=== PATIENT | female | born 1970 | race Caucasian/White ===

== ENCOUNTER 2016-12-22 08:41 | Emergency (ER) | payer SELFPAY ==
[2016-12-22 08:58] VITALS: BP 110/61
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
== END 2016-12-22 09:35 | disposition home or self-care (01) ==
LOC: UCEAST 08:41
DX: S06.0X9A Concussion with loss of consciousness of unspecified duration, initial encounter (principal); W22.8XXA Striking against or struck by other objects, initial encounter; Y99.0 Civilian activity done for income or pay
CPT/HCPCS: 99211; G0463

== ENCOUNTER 2018-06-07 15:11 | Inpatient (IN) | payer BC ==
[2018-06-07] MEDS ORDERED: Ketorolac INJ* 30 MG/ML 1 ML VIAL IV PUSH ONE (16:17)
[2018-06-07] MEDS ORDERED: Ondansetron INJ* 2 MG/ML VIAL IV ONE (16:17)
[2018-06-07] MEDS ORDERED: NS 0.9% 1000 ML** 1,000 ML IV ONE ×2 (16:17→17:12)
--- NOTE | 2018-06-07 16:17 | ED ---
Back Pain - HPI Summary HPI Summary: Patient is a 47-year-old female who presents emergency department for right CVA tenderness that started last night. Patient denies any falls or recent injuries. She states pain came on acutely and has been intermittent and sharp in nature. Patient states she was driving home from work today when pain was so severe she had a focus puller and lie down for about 30 minutes. Patient denies fever, chills, vomiting, diarrhea, urinary symptoms, chest pain or shortness of breath. Denies past medical history other than cholelithiasis and seasonal allergies. Symptoms are moderate in severity. No current modifying factors. Pain does not radiate into legs. - History of Current Complaint Chief Complaint: EDBackInjuryPain Stated Complaint: LOWER BACK PAIN/NAUSEA PER PT Time Seen by Provider: 06/07/18 16:01 Hx Obtained From: Patient Hx Last Menstrual Period: week ago Pain Intensity: 7 - Allergies/Home Medications Allergies/Adverse Reactions: Allergies Allergy/AdvReac Type Severity Reaction Status Date / Time Fish Containing Products Allergy Unknown Verified 06/07/18 15:35 Reaction Details Penicillins Allergy Difficulty Verified 06/07/18 15:35 Breathing PMH/Surg Hx/FS Hx/Imm Hx Previously Healthy: Yes Endocrine/Hematology History: Reports: Hx Blood Transfusions, Hx Anemia Denies: Hx Diabetes Cardiovascular History: Denies: Hx Hypercholesterolemia, Hx Hypertension, Hx Pacemaker/ICD Respiratory History: Reports: Hx Pneumonia, Hx Seasonal Allergies GI History: Reports: Hx Obstructive Bowel - r/t gastric bypass History: Reports: Hx Kidney Stones Sensory History: Reports: Hx Contacts or Glasses - glasses Denies: Hx Cataracts, Hx Hearing Aid Opthamlomology History: Reports: Hx Contacts or Glasses - glasses Denies: Hx Cataracts Psychiatric History: Denies: Hx Panic Disorder - Surgical History Surgery Procedure, Year, and Place: tumor removed from abdomen 2009, gastric bypass, blocked intestine surgery Hx Anesthesia Reactions: No Infectious Disease History: No Infectious Disease History: Denies: Hx of Known/Suspected MRSA, Traveled Outside the [place] in Last 30 Days - Family History Known Family History: Positive: Diabetes Negative: Cardiac Disease, Hypertension - Social History Occupation: Employed Full-time Lives: With Family Alcohol Use: None Substance Use Type: Reports: None Smoking Status (MU): Never Smoked Tobacco Review of Systems Constitutional: Negative Negative: Fever, Chills Cardiovascular: Negative Negative: Chest Pain Respiratory: Negative Negative: Shortness Of Breath Positive: Nausea. Negative: Abdominal Pain, Vomiting, Diarrhea Positive: flank pain. Negative: frequency, hematuria Musculoskeletal: Negative Skin: Negative Neurological: Negative All Other Systems Reviewed And Are Negative: Yes Physical Exam Triage Information Reviewed: Yes Vital Signs On Initial Exam: Initial Vitals Temp Pulse Resp BP Pulse Ox 98 F 92 18 123/64 100 06/07/18 15:20 06/07/18 15:20 06/07/18 15:20 06/07/18 15:20 06/07/18 15:20 Vital Signs Reviewed: Yes Appearance: Positive: Obese - Pt. sitting up in bed in NAD. Appears uncomfortable but nontoxic. Pale. Skin: Positive: Warm, Dry, Pale Head/Face: Positive: Normal Head/Face Inspection Eyes: Positive: Normal, EOMI, ERLINDA, Conjunctiva Clear Neck: Positive: Supple Respiratory/Lung Sounds: Positive: Clear to Auscultation, Breath Sounds Present Cardiovascular: Positive: Normal, RRR Abdomen Description: Positive: Nontender, Soft, Other: - Right CVA tenderness Neurological: Positive: Normal, CN Intact II-III Psychiatric: Positive: Affect/Mood Appropriate Diagnostics - Vital Signs Vital Signs Temp Pulse Resp BP Pulse Ox 06/07/18 15:20 98 F 92 18 123/64 100 - Laboratory Result Diagrams: 06/07/18 16:45 06/07/18 16:45 Lab Statement: Any lab studies that have been ordered have been reviewed, and results considered in the medical decision making process. Back Pain Course/Dx - Course Course Of Treatment: Patient presenting to the ER for right colic the flank pain that started yesterday. She is afebrile stable vital signs. Suspicious for possible urolithiasis, hydronephrosis, pyelonephritis. We'll obtain labs and CAT scan. IV Toradol and fluids ordered. Reading per radiology: IMPRESSION : NO HYDRONEPHROSIS OR NEPHROLITHIASIS. LARGE VENTRAL HERNIA CONTAINING TRANSVERSE COLON. SPLENOMEGALY. CHOLELITHIASIS. CBC showed a hemoglobin of 5 and hematocrit of 17. CBC from 2016 showed hemoglobin of 7. Type and screen and 2 unit pRBC ordered. Discussed with pt. she states that she has had a blood transfusion in the past when she was having issues with her gallbladder. She believes she has seen hematology in the past. States she use to take iron supplements but stops. Pt. notes lightheadedness and dizziness over that last few days. She deon hx of gastric ulcer, blood in stool. Stool sample was sent for occult blood. I spoke with hospitalist, Dr. Helms, and pt. has been accepted to his service. - Diagnoses Differential Diagnosis/HQI/PQRI: Positive: Renal Colic, Strain, Sprain Provider Diagnoses: Anemia, Flank pain - Critical Care Time Critical Care Time: 30-74 min - 30 minutes including direct pt. care and consultation. Excludes billable procedures. Discharge - Sign-Out/Discharge Documenting (check all that apply): Patient Departure Patient Received Moderate/Deep Sedation with Procedure: No - Discharge Plan Condition: Stable Disposition: ADMITTED TO [facility] Referrals: Martha Walsh MD [Primary Care Provider] - - Billing Disposition and Condition Condition: STABLE Disposition: Admitted to [facility]
[2018-06-07 17:06] LABS: ABS Basophils 0.1 10^3/ul (0-0.2); ABS Eosinophils 0.1 10^3/ul (0-0.6); ABS Lymphocytes 1.3 10^3/ul (1.0-4.8); ABS Monocytes 0.6 10^3/ul (0-0.8); ABS Neutrophils 5.8 10^3/ul (1.5-7.7); ABS Nucleated RBC 0 10^3/ul; Eosinophil % 1.4 %; Hematocrit 17 % (33-41); Mean Corpuscular HGB Conc 29 g/dL (31-36); Mean Corpuscular Hemoglobin 17 pg (27-31); Mean Corpuscular Volume 60 fL (80-97); Mean Platelet Volume 8.3 fL (7.4-10.4); Nucleated Red Blood Cells % 0.5; Platelet Count 230 10^3/uL (150-450); Red Blood Count 2.87 10^6 /uL (3.70-4.87); Red Cell Distribution Width 20 % (10.5-15); White Blood Count 7.8 10^3/uL (3.5-10.8)
[2018-06-07 17:11] LABS: Urine Appearance Cloudy; Urine Bacteria Absent (Absent); Urine Bilirubin Negative (Negative); Urine Blood Negative (Negative); Urine Color Yellow; Urine Glucose Negative (Negative); Urine Ketones Negative (Negative); Urine Nitrite Negative (Negative); Urine Protein Negative (Negative); Urine Red Blood Cell 1+(3-5/hpf) (Absent); Urine Specific Gravity 1.019 (1.010-1.030); Urine Squamous Epithelial Cell Present (Absent); Urine Urobilinogen Positive (Negative); Urine White Blood Cell 2+(11-20/hpf) (Absent)
[2018-06-07 17:17] LABS: Albumin/Globulin Ratio 1.5 (1-3); BUN/Creatinine Ratio 17.2 (8-20); Calcium 8.6 mg/dL (8.6-10.3); EGFR African American 133.7 (>60); EGFR Non-African American 110.5 (>60); Globulin 2.7 g/dL (2-4); Potassium 3.8 mmol/L (3.5-5.0); Total Bilirubin 0.6 mg/dL (0.2-1.0); Total Protein 6.7 g/dL (6.4-8.9)
[2018-06-07] MEDS ORDERED: Al Hydrox/Mg Hydrox/Simet LIQ* 30 ML UDC PO PRN (17:34)
[2018-06-07 17:43] LABS: Microcytosis 3+; Polychromasia 1+
[2018-06-07 17:44] LABS: Tear Drop Cells 1+
[2018-06-07 18:18] LABS: Indirect Bilirubin 0.5 mg/dL (0.3-1.0)
[2018-06-07 18:21] LABS: Hematocrit for Retic CNT 19 % (33-41); Immature Retic Fraction 0.52; RBC Retic Count 3.07 10^6/uL (3.70-4.87)
[2018-06-07 18:37] LABS: Activated Partial Thrombo Time 16.6 seconds (26.0-36.3); INR 1.14 (0.77-1.02)
--- NOTE | 2018-06-07 20:03 | HP ---
CC: Dr. Walsh * HISTORY AND PHYSICAL: DATE OF ADMISSION: 06/07/18 TIME OF ADMISSION: 6 p.m. CHIEF COMPLAINT: Back pain. HISTORY OF PRESENT ILLNESS: This is a 47-year-old female with history of anemia , who presented to the emergency department with back pain for the past 3 days. She localizes it to just right of the spine at approximately L1. She said approximately 3 days ago it started and was fairly mild. It was intermittent over the past 3 days, but today it was much worse. She drove to [employer] for work and driving made it the worst. 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 In the ED, her hemoglobin was incidentally found to be 5. The most recent hemoglobin we have on record is from 2015 when it was 7. She is not sure what it has been in between then and now. She does not take an iron because she states she did not absorb it well and she says she did see a transfer specialist several years ago in [place], but he made no recommendations and she does not know what the conclusion for the etiology of her anemia. She does note on further questioning some increased fatigue lately. She usually walks 2 miles during her lunch, but over the past 2 weeks, she has only been able to walk 1 mile because after 1 mile she is too tired. She does get periods, but they are irregular, which they have always been for her. Her most recent period ended 2 weeks ago and it lasted approximately 2-1/2 weeks. Her normal periods last only about 3 days. She did not feel that it was terribly heavy. She used approximately 5 regular tampons per day. She denies hematochezia or melena. She notes that her stools are quite light and they have not changed recently. She follows no special diet. She says she does not eat much meat, but does not particularly eliminate it. PAST MEDICAL HISTORY: Obesity and anemia. PAST SURGICAL HISTORY: She has history of an ovarian tumor removal and gastric bypass. HOME MEDICATIONS: She takes no medications nor [id number] pills. FAMILY HISTORY: Her mom has fibromyalgia and her sister has diabetes and is on dialysis. SOCIAL HISTORY: She works at the [employer] in [employer]. She does not smoke or use any alcohol. Her emergency contact is her sister, Rhina. REVIEW OF SYSTEMS: As per the HPI. Remainder of the 14-point review of systems is negative. PHYSICAL EXAMINATION GENERAL: Alert, well-appearing young female, in no acute distress. She is resting comfortably on the stretcher. VITAL SIGNS: Temperature 98 degrees, heart rate 92, respiratory rate 20, pulse ox 100% on room air, blood pressure 99/56. HEENT: Pupils are 3 mm bilaterally and reactive to light. Her conjunctivae are pale. She is anicteric. Her oral mucosa is moist. Her pharynx has no erythema or exudates. NECK: She has no JVP or adenopathy. LUNGS: Clear bilaterally. CHEST: She is in a regular rate and rhythm with no murmurs. ABDOMEN: Obese, soft, nontender, nondistended, and a healed incision is present. Her spleen is not palpable. Her liver is palpable just at the costal margin. She points to the area on her back that is tender. It is just right to L1 and is not tender with palpation and she has no CVA tenderness. EXTREMITIES: Trace edema bilaterally. No rashes or ulcers. NEUROLOGIC: She is oriented x3, pleasant, appropriate, and follows all commands. DIAGNOSTIC STUDIES/LAB DATA: White blood cells 7.8, hemoglobin 5.0, platelet count 230, MCV 60. Sodium 137, potassium 3.8, chloride 110, bicarb 23, BUN 10, creatinine 0.58, glucose 99. Urinalysis is positive for urobilinogen, leuk esterase, white blood cells, and 1+ rbc's. Imaging: A CT abdomen and pelvis shows no hydronephrosis or nephrolithiasis. A large ventral hernia containing transverse colon, splenomegaly, and cholelithiasis. Of note, the uterus and adnexa are grossly normal. There is no lymphadenopathy and there is a stable mild compression deformity at the thoracolumbar junction. ASSESSMENT AND PLAN: This is a 47-year-old female with history of obesity and unspecified anemia, who presents to the emergency department with back pain and then incidentally found to have a hemoglobin of 5. 1. Anemia. Clearly this is a chronic and subacute issue given her minimal symptoms and hemodynamic stability. The etiology, however, is unclear as she does not have notably heavy menstrual periods. I have added on studies from the emergency department labs including iron, percent sat, ferritin, transferrin , B12, reticulocytes, LDH, and liver function tests. A fecal occult blood test is pending. She has no evidence of an active bleed at this time. Given the incidental finding of splenomegaly on her CT, I am concerned for a hematologic or marrow dysfunction and I will discuss the case with Hematology. I am interested in their input. She has been ordered for 2 units of packed red blood cells in the emergency department and I agree with this plan. We will recheck her CBC after the blood has infused to check her response. 2. Back pain. She does have a mild compression deformity, so it is possible this is what is causing her pain. She has no ecchymosis and certainly no findings on her CT to explain such severe symptoms that would bring her to the emergency department. She has a mildly positive UA, but there was no stranding on the CT to suggest pyelonephritis and no other infectious symptoms, so I do not believe that pyelo is causing her symptoms either. We will continue to monitor her pain and see if it improves with blood transfusions. 3. DVT prophylaxis: Contraindicated in the setting of a possible bleed. 4. Disposition: Admit to observation to [address] [place] [address]. 5. Diet is unrestricted and activity is ad quynh. [id number]/[facility] #: [id number] [facility] HOSPITALHolli
[2018-06-07] MEDS: Lactated Ringers 1000 ML Bag* 1,000 ML IV SCH (20:39)
[2018-06-07 21:21] LABS: LDH 142 U/L (140-271); Total Iron Binding Capacity 528 mcg/dL (250-450); Transferrin 377 mg/dL (203-362)
[2018-06-07 21:33] LABS: % Iron Saturation 3 % (15-55); Iron < 17 ug/dL (50-212)
[2018-06-07 21:42] LABS: Ferritin 1.6 ng/mL (11-307)
[2018-06-08] MEDS: Acetaminophen TAB* 325 MG PO PRN ×2 (00:23→08:48)
[2018-06-08] MEDS: Lactated Ringers 1000 ML Bag* 1,000 ML IV SCH ×2 (05:20→16:53)
[2018-06-08 08:52] LABS: Hematocrit 20 % (33-41); Hemoglobin 5.9 g/dL (12.0-16.0); Mean Corpuscular HGB Conc 29 g/dL (31-36); Mean Corpuscular Hemoglobin 19 pg (27-31); Mean Corpuscular Volume 65 fL (80-97); Platelet Count 194 10^3/uL (150-450); Red Blood Count 3.09 10^6 /uL (3.70-4.87); Red Cell Distribution Width 24 % (10.5-15); White Blood Count 6.9 10^3/uL (3.5-10.8)
[2018-06-08 08:53] LABS: INR 1.18 (0.77-1.02)
[2018-06-08 09:02] LABS: BUN/Creatinine Ratio 18.6 (8-20); Calcium 8.1 mg/dL (8.6-10.3); EGFR African American 131.1 (>60); EGFR Non-African American 108.3 (>60); Potassium 3.9 mmol/L (3.5-5.0)
[2018-06-08 09:18] LABS: ABS Basophils 0.1 10^3/ul (0-0.2); ABS Eosinophils 0.2 10^3/ul (0-0.6); ABS Monocytes 0.5 10^3/ul (0-0.8); ABS Neutrophils 5.1 10^3/ul (1.5-7.7); ABS Nucleated RBC 0 10^3/ul; Eosinophil % 2.9 %; Lymphocyte % 14.3 %; Nucleated Red Blood Cells % 0.2
[2018-06-08 09:20] LABS: Microcytosis 1+; Polychromasia 1+; Tear Drop Cells 1+
[2018-06-08] MEDS: Iron Sucrose* 200 MG in NS 0.9% 100 ML* 100 ML IVPB SCH (13:12)
--- NOTE | 2018-06-08 14:37 | CONS ---
Amended report to enter date of consult. CONSULTATION REPORT: DATE OF CONSULT: 06/08/18. REFERRING PHYSICIAN: Hospitalist group. PRIMARY CARE PHYSICIAN: Dr. Walsh. HISTORY OF PRESENT ILLNESS: This is a 47-year-old female with history of gastric bypass surgery in 2000. She has longstanding anemia since that time. She had been treated in [place] by a application support technician, but does not remember having any IV iron infusions. That doctor moved and she was subsequently lost to follow up. She sees Dr. Walsh at [facility] for primary care. 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 She has a history of anemia through our chart record, which shows a hemoglobin of 7.5 on 11/06/10, 8.9 on 11/07/10 and 8.2 on 11/08/10, 7.2 in January 2015, 7.September. Most recently, she developed acute back pain. Pain started on 06/04/18 and continued up through . Sharp pain, intermittent, that was so bad when driving, she had to pull off the road. She thought she had a kidney infection and she came to the [facility] Emergency Room. She had also noticed increasing fatigue over the past month. She has had more shortness of breath, she has not been unable to walk 2 miles, she can only walk less than 1 mile. She has been going to work regularly. On presentation, she had a CBC that showed a hemoglobin of 5.0, MCV of 60, white count 6.9, and platelets of 194,000. Chemistries show normal renal function, iron saturation of 3% with ferritin of 1.6. Normal LFTs and normal bilirubin, normal LDH and B12 of 283. A CT scan of the abdomen and pelvis was done that shows splenomegaly with spleen over 16 cm. No evidence of kidney stone, normal kidneys and a normal appearing liver. She did have a left ventral hernia containing the transverse colon. She was admitted and given packed red blood cells. PAST MEDICAL HISTORY: 1. Obesity. 2. Chronic anemia. PAST SURGICAL HISTORY: 1. Gastric bypass surgery, 2000. 2. Tonsils in childhood. GYNECOLOGIC HISTORY: Periods are irregular, but only last 2 to 3 days when they appear. She has moderate amount of bleeding. P0, G0. No history of fibroids. ALLERGIES: FISH and PENICILLIN. FAMILY HISTORY: Anemia in her mother side including her maternal grandmother. Her sister has diabetes and has gone into renal failure. Parkinson's runs in the family. SOCIAL HISTORY: She is currently working at the [employer]. She does not smoke and does not drink. REVIEW OF SYSTEMS: Fatigue as noted above. No fever, chills or night sweats. Weight has been stable. HEENT: Negative. Lungs: Shortness of breath with exertion. Cardiac: No palpitations or chest pain even with exertion. GI: She has the flank pain in the last 3 days, was otherwise negative. Normal bowel movements. She has not noticed dark stools or blood in her stool. : No hematuria, dysuria. Musculoskeletal: Denies back pain or joint pain. Neurologic: Negative. Skin: No rashes or lesions. PHYSICAL EXAMINATION: BP 116/63, pulse 87, respirations 16, sat 99%, temperature 98.7. HEENT: Conjunctivae pale, mucosa moist. No cervical or supraclavicular lymphadenopathy. Lungs are clear to auscultation. Heart is regular rate and rhythm. S1 and S2. No murmurs or gallops. Abdomen: Obese, nontender, nondistended, cannot palpate spleen or liver. Extremities: Edema versus obesity. She has good pulses x4. Neurologic: Grossly nonfocal. LABORATORY DATA: Additional blood work include an INR of 1.18 and she had a urine that showed +2 leukocyte esterase, +1 white blood cells, yellow and cloudy , negative for protein or blood. No bacteria. ASSESSMENT AND PLAN: A 47-year-old female with acute on chronic iron deficiency anemia after gastric bypass. Differential diagnosis includes anemia secondary to gastric bypass, additional absorption defect such as celiac disease , occult blood loss and obesity as a risk factor for colon cancer. 1. Agree with 2 units of packed red blood cells. We will also give her IV iron daily for the duration of her stay in the hospital. Plan Venofer 200 mg IV. 2. Borderline B12, we will check methylmalonic acid. She may have absorption defect. 3. We will also check a celiac panel and von Willebrand panel. She does have some history of menorrhagia. 4. Close follow up and IV iron after discharge. 5. She will need endoscopy and colonoscopy to rule out occult bleeding. This can also be done as an outpatient after discharge. We will continue to follow during the hospitalization and then in clinic after discharge. [id number]/[facility] #: [id number] HUA
--- NOTE | 2018-06-08 14:42 | PN ---
Subjective Date of Service: 06/08/18 Interval History: Ms. Bro is feeling better today. She denies any dizziness, lightheadedness, or SOB. She has been up ambulating without difficulty. She had a headache this morning which was relieved by Tylenol. She reports that she had a heavy menstrual cycle within the last month, but did not have any menses the month prior. This is somewhat typical for her so she was not concerned. She does not follow with a RECYCLABLE MATERIALS SORTER regularly. Family History: Unchanged from Admission Social History: Unchanged from Admission Past Medical History: Unchanged from Admission Objective Active Medications: Acetaminophen (Tylenol Tab*) 650 mg PO Q4H PRN FEVER/PAIN Al Hydrox/Mg Hydrox/Simethicone (Maalox Plus*) 30 ml PO Q6H PRN INDIGESTION Lactated Ringer's (Lactated Ringers 1000 Ml Bag*) 1,000 mls @ 125 mls/hr IV PER RATE JON Iron Sucrose 200 mg/ Sodium (Chloride) 110 mls @ 110 mls/hr IVPB DAILY [facility] Vital Signs - 8 hr 06/08/18 07:35 Temperature 98.7 F Pulse Rate 87 Respiratory 16 Rate Blood Pressure 116/63 (mmHg) O2 Sat by Pulse 99 Oximetry Oxygen Devices in Use Now: None Appearance: Middle-aged female sitting in bed in NAD Eyes: No Scleral Icterus Ears/Nose/Mouth/Throat: Mucous Membranes Moist Neck: NL Appearance and Movements; NL JVP, Trachea Midline Respiratory: Symmetrical Chest Expansion and Respiratory Effort, Clear to Auscultation Cardiovascular: NL Sounds; No Murmurs; No JVD, RRR Abdominal: NL Sounds; No Tenderness; No Distention Extremities: No Edema Skin: No Rash or Ulcers Neurological: Alert and Oriented x 3 Lines/Tubes/Other Access: Clean, Dry and Intact Peripheral IV Nutrition: Taking PO's Result Diagrams: 06/08/18 08:32 06/08/18 08:32 Assess/Plan/Problems-Billing Assessment: Ms. Bro is a 47 yo F with PMH of obesity and anemia who presented to the ED with back pain and was found to be markedly anemic with an H&H of 5 & 17, asymptomatic. - Patient Problems (1) Anemia Code(s): D64.9 - ANEMIA, UNSPECIFIED Comment: - Likely multifactorial d/t iron deficiency, malabsoprtion, and acute blood loss - H&H 5/17 on admission, now 5.11/29 after 2 units PRBC yesterday - Stool occult negative - Appreciate Hematology consult; will check methylmalonic acid, celiac panel, von Willebrand panel (all pending) - Will need EGD and colonoscopy as an outpatient; will also need f/u with a RECYCLABLE MATERIALS SORTER - Transfuse 2 units PRBC today; will recheck H&H again today and in the AM - Start iron sucrose daily while in the hospital per Heme recommendations (2) Back pain Code(s): M54.9 - DORSALGIA, UNSPECIFIED Comment: - Present on admission, now resolved - Suspect musculoskeletal injury (3) DVT prophylaxis Comment: - Ambulation (4) Full code status Code(s): Z78.9 - OTHER SPECIFIED HEALTH STATUS Comment: Status and Disposition: Observation for continued anemia. Anticipate d/c home when H&H is stable. Attending: José Miguel Rosenberg
[2018-06-08] MEDS ORDERED: Ondansetron INJ* 2 MG/ML VIAL IV PRN (18:42)
[2018-06-08] MEDS ORDERED: Ondansetron INJ* 2 MG/ML VIAL ONE (19:01)
[2018-06-08 20:08] LABS: ABS Basophils 0.1 10^3/ul (0-0.2); ABS Eosinophils 0.2 10^3/ul (0-0.6); ABS Lymphocytes 1.2 10^3/ul (1.0-4.8); ABS Monocytes 0.6 10^3/ul (0-0.8); ABS Neutrophils 6.8 10^3/ul (1.5-7.7); ABS Nucleated RBC 0 10^3/ul; Eosinophil % 1.8 %; Hematocrit 23 % (33-41); Mean Corpuscular HGB Conc 31 g/dL (31-36); Mean Corpuscular Hemoglobin 21 pg (27-31); Mean Corpuscular Volume 68 fL (80-97); Mean Platelet Volume 9.2 fL (7.4-10.4); Nucleated Red Blood Cells % 0.3; Platelet Count 206 10^3/uL (150-450); Red Blood Count 3.37 10^6 /uL (3.70-4.87); Red Cell Distribution Width 26 % (10.5-15); White Blood Count 8.9 10^3/uL (3.5-10.8)
[2018-06-09] MEDS: Lactated Ringers 1000 ML Bag* 1,000 ML IV SCH (00:51)
[2018-06-09] MEDS ORDERED: Ketorolac INJ* 30 MG/ML 1 ML VIAL IM PRN (06:15)
[2018-06-09] MEDS ORDERED: Morphine 4 MG/ML VIAL (1 ml) 4 MG/ML VIAL IV PRN (07:02)
--- NOTE | 2018-06-09 07:05 | PN ---
Hospitalist Progress Note Date of Service: 06/09/18 Pt c/o severe back pain R sided around 6AM, pt reports exact pain that brought her in, looked at CT scan, no e/o nephrolithiasis, or acute path, AM labs pending, per RN vital signs are stable given toradol 30mg IV, no relief Ordered for 4mg IV morphine x 1 Consider repeat imaging if pain not resolving.
[2018-06-09 08:21] LABS: Hematocrit 25 % (33-41); Hemoglobin 7.4 g/dL (12.0-16.0); Mean Corpuscular HGB Conc 30 g/dL (31-36); Mean Corpuscular Hemoglobin 21 pg (27-31); Mean Corpuscular Volume 69 fL (80-97); Platelet Count 219 10^3/uL (150-450); Red Blood Count 3.57 10^6 /uL (3.70-4.87); Red Cell Distribution Width 27 % (10.5-15); White Blood Count 10.2 10^3/uL (3.5-10.8)
--- NOTE | 2018-06-09 08:57 | PN ---
Subjective Date of Service: 06/09/18 Interval History: Ms. Bro is having back pain again this morning. This is similar to the back pain she reported on admission. She did not have any back pain yesterday. Had an episode of emesis after blood transfusion then woke with back pain around 0500. She reports right-sided lumbar pain. Does not feel similar to muscle spasms she has experienced in the past. Pain was 6/10 at onset, increased to 10/ 10 within 30 min. Now down to 4/10 after morphine. Laying flat and ambulating alleviate the pain. No known aggravating factors. Came on a few days prior to admission and had been intermittent, similar to this episode. Otherwise, she is feeling much better after the transfusions and feels as though she has more energy. Denies SOB, N/V, dizziness, headache. Nursing reports continued pain after administration of morphine. Transfusion workup was completed yesterday d/t emesis after transfusion, though this was thought to be unrelated. Family History: Unchanged from Admission Social History: Unchanged from Admission Past Medical History: Unchanged from Admission Objective Active Medications: Acetaminophen (Tylenol Tab*) 650 mg PO Q4H PRN FEVER/PAIN Al Hydrox/Mg Hydrox/Simethicone (Maalox Plus*) 30 ml PO Q6H PRN INDIGESTION Baclofen (Lioresal Tab*) 10 mg PO TID PRN SPASMS - BACK Lactated Ringer's (Lactated Ringers 1000 Ml Bag*) 1,000 mls @ 125 mls/hr IV PER RATE JON Iron Sucrose 200 mg/ Sodium (Chloride) 110 mls @ 110 mls/hr IVPB DAILY JON Ketorolac Tromethamine (Toradol Inj*) 30 mg IV Q6H PRN PAIN Morphine Sulfate (Morphine 4 Mg/Ml Vial (1 Ml)) 4 mg IV Q4H PRN PAIN Ondansetron HCl (Zofran Inj*) 4 mg IV Q6H PRN NAUSEA Vital Signs - 8 hr 06/09/18 06/09/18 06/09/18 03:07 07:09 08:09 Temperature 98.1 F 98.0 F Pulse Rate 72 66 Respiratory 16 24 16 Rate Blood Pressure 116/57 92/54 (mmHg) O2 Sat by Pulse 97 97 Oximetry Oxygen Devices in Use Now: None Appearance: Middle-aged female laying in bed in NAD Eyes: No Scleral Icterus Ears/Nose/Mouth/Throat: Mucous Membranes Moist Neck: NL Appearance and Movements; NL JVP, Trachea Midline Respiratory: Symmetrical Chest Expansion and Respiratory Effort, Clear to Auscultation Cardiovascular: NL Sounds; No Murmurs; No JVD, RRR Abdominal: NL Sounds; No Tenderness; No Distention Extremities: No Edema Skin: No Rash or Ulcers Neurological: Alert and Oriented x 3, - - Spine nontender to palpation, no CVA tenderness Lines/Tubes/Other Access: Clean, Dry and Intact Peripheral IV Nutrition: Taking PO's Result Diagrams: 06/09/18 07:52 06/08/18 08:32 Assess/Plan/Problems-Billing Assessment: Ms. Bro is a 47 yo F with PMH of obesity and anemia who presented to the ED with back pain and was found to be markedly anemic with an H&H of 5 & 17, asymptomatic. - Patient Problems (1) Anemia Code(s): D64.9 - ANEMIA, UNSPECIFIED Comment: - Likely multifactorial d/t iron deficiency, malabsoprtion, and acute blood loss - H&H 5/17 on admission, now 7.4/ after total of 4 units PRBC - Stool occult negative - Appreciate Hematology consult; will check methylmalonic acid, celiac panel, von Willebrand panel (all pending) - Will need EGD and colonoscopy as an outpatient; will also need f/u with a NITRIC ACID CONCENTRATOR OPERATOR - Continue iron sucrose (2) Back pain Code(s): M54.9 - DORSALGIA, UNSPECIFIED Comment: - Present on admission, resolved yesterday, but recurred again this morning - Pain is lower back, right-sided - Nontender to palpation and no CVA tenderness - Suspect musculoskeletal injury, possible spasms; no evidence of UTI, pyelonephritis, or nephrolithiasis - Start baclofen (3) Obesity Code(s): E66.9 - OBESITY, UNSPECIFIED Comment: - BMI 44 (4) DVT prophylaxis Comment: - Ambulation (5) Full code status Code(s): Z78.9 - OTHER SPECIFIED HEALTH STATUS Comment: Status and Disposition: Inpatient for anemia. Anticipate d/c home when H&H is stable and back pain is tolerable, likely tomorrow. Attending: José Miguel Rosenberg
[2018-06-09 09:11] LABS: ABS Basophils 0.1 10^3/ul (0-0.2); ABS Eosinophils 0.2 10^3/ul (0-0.6); ABS Monocytes 0.8 10^3/ul (0-0.8); ABS Neutrophils 8.1 10^3/ul (1.5-7.7); ABS Nucleated RBC 0 10^3/ul; Eosinophil % 2.3 %; Lymphocyte % 9.9 %; Microcytosis 1+; Nucleated Red Blood Cells % 0.3
[2018-06-09 09:12] LABS: Polychromasia 1+
[2018-06-09] MEDS: Iron Sucrose* 200 MG in NS 0.9% 100 ML* 100 ML IVPB SCH (09:49)
[2018-06-09] MEDS: Baclofen TAB* 10 MG PO PRN ×2 (09:49→18:52)
[2018-06-10] MEDS: Ketorolac INJ* 30 MG/ML 1 ML VIAL IV PRN ×2 (03:03→10:19)
[2018-06-10 08:36] LABS: Hematocrit 26 % (33-41); Hemoglobin 7.7 g/dL (12.0-16.0); Mean Corpuscular HGB Conc 30 g/dL (31-36); Mean Corpuscular Hemoglobin 21 pg (27-31); Mean Corpuscular Volume 70 fL (80-97); Mean Platelet Volume 9.6 fL (7.4-10.4); Platelet Count 167 10^3/uL (150-450); Red Cell Distribution Width 27 % (10.5-15); White Blood Count 10.6 10^3/uL (3.5-10.8)
[2018-06-10 08:58] LABS: ABS Basophils 0.1 10^3/ul (0-0.2); ABS Eosinophils 0.3 10^3/ul (0-0.6); ABS Lymphocytes 1.1 10^3/ul (1.0-4.8); ABS Monocytes 0.7 10^3/ul (0-0.8); ABS Neutrophils 8.4 10^3/ul (1.5-7.7); ABS Nucleated RBC 0 10^3/ul; Lymphocyte % 10.1 %; Nucleated Red Blood Cells % 0.3
[2018-06-10 08:59] LABS: Microcytosis 2+; Polychromasia 1+
[2018-06-10] MEDS: Iron Sucrose* 200 MG in NS 0.9% 100 ML* 100 ML IVPB SCH (10:24)
--- NOTE | 2018-06-10 11:10 | PN ---
Progress Note - Progress Note Date of Service: 06/10/18 SOAP: Subjective: []Still some back pain but overall feeing better. Tolerating IV iron w/o difficulty. Acetaminophen (Tylenol Tab*) 650 mg PO Q4H PRN PRN Reason: FEVER/PAIN Last Admin: 06/08/18 08:48 Dose: 650 mg Al Hydrox/Mg Hydrox/Simethicone (Maalox Plus*) 30 ml PO Q6H PRN PRN Reason: INDIGESTION Baclofen (Lioresal Tab*) 10 mg PO TID PRN PRN Reason: SPASMS - BACK Last Admin: 06/09/18 18:52 Dose: 10 mg Iron Sucrose 200 mg/ Sodium (Chloride) 110 mls @ 110 mls/hr IVPB DAILY JON Stop: 06/13/18 12:59 Last Admin: 06/10/18 10:24 Dose: 110 mls/hr Ketorolac Tromethamine (Toradol Inj*) 30 mg IV Q6H PRN PRN Reason: PAIN Stop: 06/14/18 06:15 Last Admin: 06/10/18 10:19 Dose: 30 mg Morphine Sulfate (Morphine 4 Mg/Ml Vial (1 Ml)) 4 mg IV Q4H PRN PRN Reason: PAIN Last Admin: 06/09/18 07:09 Dose: 4 mg Ondansetron HCl (Zofran Inj*) 4 mg IV Q6H PRN PRN Reason: NAUSEA Last Admin: 06/09/18 00:51 Dose: 4 mg Objective: [] Vital Signs Temp Pulse Resp BP Pulse Ox 97.6 F 75 18 108/57 98 06/10/18 04:09 06/10/18 04:09 06/10/18 04:09 06/10/18 04:09 06/10/18 04:09 HEENT: mucosa moist, pale CTA RRR S1S2 Abd - obese, NT ND Ext w/o C/C/E Assessment: []JW. Evaluation pending. Tolerating IV Iron Plan: []1. IV Venofer today, combined with 4 U PRBC > 1 g iron during admission. 2. Follow up in clinic in 2 weeks with CBC, Iron studies, Retic count and for pending labs, additional iron as needed.
[2018-06-10 11:17] VITALS: BP 100/58
--- NOTE | 2018-06-10 21:29 | DS ---
CC: Dr. Martha Walsh; Dr. Axel Reynoso * DISCHARGE SUMMARY: DATE OF ADMISSION: 06/07/18 DATE OF DISCHARGE: 06/10/18 PRIMARY CARE PROVIDER: Dr. Martha Walsh. ATTENDING PHYSICIAN: Dr. Tasia Moreno * (dictated by Isis Minaya NP). PRIMARY DIAGNOSES: 1. Anemia, acute blood loss superimposed on iron deficiency. 2. Back pain, suspect musculoskeletal. STUDIES WHILE IN THE HOSPITAL: 1. Abdomen and pelvis CT on 06/07/18 reads as no hydronephrosis or nephrolithiasis. Large ventral hernia containing transverse colon. Splenomegaly. Cholelithiasis. 2. EKG on 06/07/18 shows normal sinus rhythm with a rate of 90, QTc 451. No ischemic changes. HISTORY OF PRESENT ILLNESS AND HOSPITAL COURSE: Ms. Bro is a 47-year-old female with past medical history of anemia, who presented to the emergency room on 06/07/18 with complaints of back pain. Please see the history and physical by Dr. Burton for a complete summary of the events leading up to this hospitalization. In short, the patient had back pain for approximately 3 days, which was intermittent. She noted worsening pain when she was driving, and the pain was unbearable, so she presented to the emergency room. In the emergency room, she was incidentally found to have a hemoglobin of 5.0. She did have a known history of anemia, although was not taking iron supplements and it is unclear why. She did report some fatigue, though no shortness of breath or dizziness. She also reported occasionally heavy menses. Denies any bloody stool. She had imaging as noted above. Because of the concern for anemia, she was admitted by the hospitalist service. The patient was given 2 units of packed red blood cells overnight, which brought her H and H up to 5.9 and 20. At that point, on 06/08/18, she denied any back pain and reported feeling generally well. She was given an additional 2 units of packed red blood cells and the next day had an H and H of 7.0 and 23. At that point, she reported feeling much better and felt as though she had more energy. She did, however, report that her back pain had returned. She described this back pain as lumbar right-sided more towards the flank. Again, this pain is intermittent. There are no known aggravating factors. She reported the pain was alleviated by lying flat or by ambulating. Tylenol was not effectively relieving the pain, and I started the patient on baclofen because of the concern for muscle spasms. The patient reports some relief with the baclofen. On 06/09/18, her H and H were 7.4 and 25, and at that point, she was stable for discharge from her anemia standpoint. She was seen in consultation by Dr. Reynoso from Hematology, who ordered additional labs and recommended IV iron during her hospitalization and p.o. iron at discharge. He additionally recommended followup endoscopy and colonoscopy to rule out occult bleeding. The patient felt as though she needed to stay another night due to her intractable back pain. She had an uneventful night. On exam this morning, she reports feeling generally well. She continues to have intermittent right- sided flank/back pain, though this is relieved partially by baclofen and heat. The patient does not have any CVA tenderness. She had a urine culture with no growth and so again there was no concern for pyelonephritis. Because of CT imaging, there was also little concern for nephrolithiasis. The patient is quite adamant that she believes this is not musculoskeletal pain as this is not the pain she has typically had in the past. She did express concern because her sister, who is a diabetic, is on the kidney transplant list and the patient was told by a friend, who is a registered nurse, that she may have impaired blood flow to her kidneys, which is causing this pain. On review of the CT scan , I will note that there were no abnormalities noted within her kidneys and the radiologist reported "the kidneys are normal in shape, size, contour, and axis. There is no hydronephrosis or nephrolithiasis." I did explain to the patient that I felt as though this back pain was very likely musculoskeletal as it is relieved in part by baclofen and heat and also relieved with ambulation. She is comfortable going home today with a prescription for baclofen. She denies any dizziness, lightheadedness, shortness of breath, or headache, and the exam is otherwise benign. Ms. Bro is stable for discharge today. Vital signs are as follows: Temp 98.2, heart rate 74, respiratory rate 18, oxygen saturation 98% on room air, blood pressure 100/58. DISCHARGE MEDICATIONS: New medications: 1. Baclofen 10 mg p.o. t.i.d. p.r.n. back spasms. 2. Ferrous sulfate 325 mg p.o. daily. Continued medication: 1. Fexofenadine 180 mg p.o. daily. DISCHARGE PLAN: Ms. Bro will be discharged home. Activity will be as tolerated. Diet will be regular as tolerated. Medications are noted above. The patient has been prescribed a month's worth of baclofen for her back pain. As recommended by Hematology, she has also been started on oral iron supplementation. She will need to follow up with her primary care provider, and I have advised her that if she continues to have this back pain, she may benefit from a referral to Physical Therapy, but I do not think any further workup is necessary at this point. She will additionally need to follow up with Dr. Reynoso, and he reports that his office will call her with an appointment. He will follow up on all pending labs. The patient has been advised to return to the emergency room or nearest hospital for any worsening of symptoms, shortness of breath, lightheadedness, dizziness, chest discomfort, high fever, chills, night sweats, loss of consciousness, or any other worrisome signs or symptoms. DISCHARGE CONDITION: Good. DISCHARGE DISPOSITION: Home. This is a summarized report of a complex medical history and hospital stay. For further details, please see the entire medical record. TIME SPENT: Approximately 40 minutes was spent on this discharge. ISIS MINAYA NP [id number]/[facility] #: [id number] HUA
[2018-06-11] MEDS ORDERED: Ferrous Sulfate TAB* 325 MG PO SCH (09:00)
[2018-06-12 00:14] LABS: Tissue Transglutaminase IgA Ab <1.2 U/mL
[2018-06-12 00:43] LABS: Immunoglobulin A 133 mg/dL (61 - 356)
[2018-06-12 09:40] LABS: Methylmalonic Acid 0.15 nmol/mL (<=0.40)
[2018-06-13 16:47] LABS: Coagulation Factor VIII Activi 202 % (55 - 200); Special Coag Interp Performed
== END 2018-06-10 14:15 | disposition home or self-care (01) | DRG 663 ==
LOC: ED 15:11 → MED 17:34 → OBSVTOIN 06-08 15:09
PROVIDERS: ADMIT Internal Medicine; ATTEND Internal Medicine
PROC: 30233N1 Transfusion of Nonautologous Red Blood Cells into Peripheral Vein, Percutaneous Approach (ICD-10-PCS; principal; 2018-06-08)
DX: D62 Acute posthemorrhagic anemia (principal); Z68.41 Body mass index [BMI] 40.0-44.9, adult; M54.9 Dorsalgia, unspecified; D50.9 Iron deficiency anemia, unspecified; K43.9 Ventral hernia without obstruction or gangrene; N92.0 Excessive and frequent menstruation with regular cycle; J30.2 Other seasonal allergic rhinitis; E66.9 Obesity, unspecified; Z84.1 Family history of disorders of kidney and ureter; Z83.3 Family history of diabetes mellitus; Z98.84 Bariatric surgery status; Z82.69 Family history of other diseases of the musculoskeletal system and connective tissue; Z88.0 Allergy status to penicillin; Z91.013 Allergy to seafood; Z87.442 Personal history of urinary calculi
CPT/HCPCS: 36415; 74176; 80048; 80053; 81003; 81015; 82248; 82272; 82607; 82728; 82784; 83540; 83550; 83615; 83921; 85025; 85045; 85060; 85240; 85610; 85730; 86078; 86850; 86870; 86880; 86900; 86901; 86922; 87086; 93005; 99223; 99232; 99282; A9270-GY; G0378; J1756; J1885; J2270; J2405; P9040